=== PATIENT | female | born 1975 | race Caucasian/White ===

== ENCOUNTER 2022-06-18 13:18 | Outpatient (CLI) | payer OTHER | END 2022-06-18 13:32 | disposition home or self-care (01) | LOC: MRI 13:18 | PROVIDERS: ATTEND Internal Medicine | DX: I67.1 Cerebral aneurysm, nonruptured (principal); Q61.3 Polycystic kidney, unspecified; Z82.71 Family history of polycystic kidney | CPT/HCPCS: 70544 ==

== ENCOUNTER → 2022-07-02 | Outpatient (CLI) | payer OTHER | END | disposition home or self-care (01) | LOC: MRI 09:37 | PROVIDERS: ATTEND Internal Medicine | DX: I67.1 Cerebral aneurysm, nonruptured (principal); Q61.3 Polycystic kidney, unspecified; R93.0 Abnormal findings on diagnostic imaging of skull and head, not elsewhere classified; N18.5 Chronic kidney disease, stage 5; Z82.71 Family history of polycystic kidney | CPT/HCPCS: 70551 ==

== ENCOUNTER 2023-02-01 05:13 | Day surgery (SDC) | payer OTHER ==
[~2023-02-01 05:13] MED LIST: CARDURA8 MG PO; NORVASC5 MG PO; ROCALTROL0.25 MCG; SYNTHROID75 MCG PO; TOPROL XL100 M1
== END 2023-02-01 18:15 | disposition home or self-care (01) ==
LOC: CIR.AMB 05:13
PROVIDERS: ATTEND Urology
DX: C67.9 Malignant neoplasm of bladder, unspecified (principal); Z88.6 Allergy status to analgesic agent; Z91.041 Radiographic dye allergy status; Z20.822 Contact with and (suspected) exposure to COVID-19; I10 Essential (primary) hypertension; E78.5 Hyperlipidemia, unspecified; E03.9 Hypothyroidism, unspecified